=== PATIENT | female | born 1980 | race Asian ===

== ENCOUNTER 2019-07-11 10:02 | Outpatient (CLI) | payer OTHER ==
--- NOTE | 2019-07-11 11:27 | Ultrasound Report ---
Reason: RT THUMB BURSAL CYST Procedure Date: 07/11/2019 Accession Number: [id number] / [id number] Procedure: US - Ext Limited Non Vascular CPT Code: Final Report FULL RESULT: EXAM: RIGHT FINGER ULTRASOUND, THUMB. EXAM DATE: 07/11/2019 10:16 AM. CLINICAL HISTORY: RT THUMB BURSAL CYST. Discolored nail with tenderness. COMPARISON: None. TECHNIQUE: Real-time scanning was performed with static images obtained. FINDINGS: In the nailbed region of the right thumb is a 0.4 cm hyperechoic lesion, sonographic appearance suggestive of foreign body surrounded by approximately 3 mm thick fluid collection. There is no bursal cyst, the finding is not at the joint or in communication with the joint space. IMPRESSION: Suspect foreign body with surrounding fluid collection at the base of the nail bed. No bursal cyst. RADIA
== END 2019-07-11 10:03 | disposition home or self-care (01) ==
LOC: DI 10:02
DX: M71.341 Other bursal cyst, right hand (principal); L60.8 Other nail disorders
CPT/HCPCS: 76882

== ENCOUNTER 2021-08-12 13:40 | Emergency (ER) | payer OTHER ==
[2021-08-12 13:48] VITALS: BP 137/79
[2021-08-12 14:49] LABS: BASOPHILS % (AUTO) 0.3 %; EOSINOPHILS # (AUTO) 0.1 10^3/uL (0.0-0.7); EOSINOPHILS % (AUTO) 1.2 %; HCT - HEMATOCRIT 36.8 % (37.0-47.0); HGB - HEMOGLOBIN 12.5 g/dL (12.0-16.0); LYMPHOCYTES # (AUTO) 1.7 10^3/uL (1.5-3.5); MEAN CORPUSCULAR HEMOGLOBIN 27.8 pg (27.0-31.0); MEAN CORPUSCULAR VOLUME 81.8 fL (81.0-99.0); MEAN PLATELET VOLUME 9.3 fL (7.9-10.8); MONOCYTES # (AUTO) 0.6 10^3/uL (0.0-1.0); MONOCYTES % (AUTO) 7.6 %; NEUTROPHILS % (AUTO) 67.4 %; PLT - PLATELET COUNT 231 10^3/uL (130-450); RED CELL DISTRIBUTION WIDTH 13.9 % (12.0-15.0); WHITE BLOOD COUNT 7.4 x10^3/uL (4.8-10.8)
[2021-08-12 15:07] LABS: ALBUMIN 3.5 g/dL (3.2-5.5); BILIRUBIN,TOTAL 0.3 mg/dL (0.2-1.0); CALCIUM 8.8 mg/dL (8.5-10.3); CREATININE 0.5 mg/dL (0.4-1.0)
--- NOTE | 2021-08-12 15:59 | ED Physician Documentation ---
History of Present Illness - Stated complaint Stated Complaint: FEMALE - Chief complaint Chief Complaint: General - History obtained from History obtained from: Patient - History of Present Illness Timing: Today Pain level max: 0 Pain level now: 0 - Additonal information Additional information: 41 year old female with a IUFD on US 2 days ago at [facility], scheduled for a D&C tomorrow at [place]. Wants to confirm demise. Review of Systems Constitutional: denies: Fever, Chills GI: denies: Vomiting, Diarrhea Skin: denies: Rash Musculoskeletal: denies: Neck pain, Back pain Neurologic: denies: Headache PD PAST MEDICAL HISTORY - Present Medications Home Medications: Ambulatory Orders Medication Instructions Recorded Confirmed Pnv No.95/Ferrous Fum/Folic AC 1 each PO DAILY 08/12/21 08/12/21 [ [place]] - Allergies Allergies/Adverse Reactions: Allergies Allergy/AdvReac Type Severity Reaction Status Date / Time No Known Drug Allergies Allergy Verified 08/12/21 13:47 PD ED PE NORMAL - Vitals Vital signs reviewed: Yes - General General: Alert and oriented X 3, No acute distress - HEENT HEENT: Moist mucous membranes - Neck Neck: Supple, no meningeal sign - Cardiac Cardiac: RRR, Strong equal pulses - Respiratory Respiratory: No respiratory distress, Clear bilaterally - Abdomen Abdomen: Soft, Non tender, Non distended - Derm Derm: Warm and dry - Extremities Extremities: No edema - Neuro Neuro: Alert and oriented X 3 - Psych Psych: Normal mood, Normal affect Results - Vitals Vitals: Vital Signs - 24 hr 08/12/21 13:44 Temperature 36.2 C L Heart Rate 88 Respiratory 16 Rate Blood Pressure 137/79 H O2 Saturation 100 Oxygen O2 Source Room air - Labs Labs: Laboratory Tests 08/12/21 08/12/21 08/12/21 14:44 14:44 14:44 WBC 7.4 RBC 4.50 Hgb 12.5 Hct 36.8 L MCV 81.8 MCH 27.8 MCHC 34.0 RDW 13.9 Plt Count 231 MPV 9.3 Neut # (Auto) 5.0 Lymph # (Auto) 1.7 Geary # (Auto) 0.6 Eos # (Auto) 0.1 Baso # (Auto) 0.0 Absolute Nucleated RBC 0.00 Nucleated RBC % 0.0 Sodium 136 Potassium 4.0 Chloride 103 Carbon Dioxide 23 Anion Gap 10.0 BUN 10 Creatinine 0.5 Estimated GFR (MDRD) 137 Glucose 84 Calcium 8.8 Total Bilirubin 0.3 AST 12 ALT 15 Alkaline Phosphatase 40 L Total Protein 7.0 Albumin 3.5 Globulin 3.5 Albumin/Globulin Ratio 1.0 Lipase 40 HCG, Quant 32514.00 - Rads (name of study) OB US Radiology: Final report received, EMP read contemporaneously, See rad report PD MEDICAL DECISION MAKING - ED course Complexity details: reviewed results, re-evaluated patient, considered differential, d/w patient ED course: 41-year-old female with an intrauterine demise. Has a D&C scheduled tomorrow. No other emergency medical condition at this time. Patient counseled regarding signs and symptoms for which I believe and urgent re-evaluation would be necessary. Patient with good understanding of and agreement to plan and is comfortable going home at this time This document was made in part using voice recognition software. While efforts are made to proofread this document, sound alike and grammatical errors may occur. No pain or bleeding today 1. Single intrauterine gestation with absence of heart tone or movement consistent with intrauterine demise. This is also consistent with reported outside study finding. Departure - Departure Disposition: 01 Home, Self Care Clinical Impression: demise Condition: Good Instructions: ED Miscarriage Inevitable Follow-Up: your,doctor tomorrow [Other] Comments: your ultrasound today does confirm an intrauterine demise. Please follow up with OB as scheduled tomorrow. Discharge Date/Time: 08/12/21 16:08
--- NOTE | 2021-08-12 16:07 | Ultrasound Report ---
PROCEDURE: OB 14+ Weeks INDICATIONS: possible demise 14 weeks OUTSIDE/PRIOR DATING DATA: Last menstrual period (LMP): 04/30/2021. LMP-based estimated date of delivery (CRYSTAL): 02/04/2022. First dating scan (date and location): 07/03/2021. Estimated date of delivery (CRYSTAL) from first dating scan: 02/04/2022. The below data below was generated using the prior study generated CRYSTAL of 02/04/2022 TECHNIQUE: Real-time scanning was performed of the fetus, with image documentation and biometric measurements. COMPARISON: Outside study performed at clinician's office dated 08/10/2021. FINDINGS: General: A single living intrauterine gestation is present. Presentation: Breech Placenta: Placental position is posterior, without previa. Amniotic fluid index : not evaluated. heart rate: Not detected. Maternal cervical canal: 3.2 cm long and is closed, normal length is 2.5 cm or more. biometrics: Biparietal diameter: 2.66 cm, 14 weeks, 5 days Head circumference: 10.94 cm, 15 weeks, 2 days Abdominal circumference: 9.2 cm, 15 weeks, 3 days Femur length: 1.49 cm, 14 weeks, 3 days Estimated gestational age from initial scan: 14 weeks, 6 days. Composite gestational age from present scan: 15 weeks, 0 day. No movement is noted during the study. IMPRESSION: 1. Single intrauterine gestation with absence of heart tone or movement consistent with i ntrauterine demise. This is also consistent with reported outside study finding. Patient is scheduled for D&C at [facility] on 08/13/2021. Reviewed by: Jarertt Strauss MD on 08/12/2021 4:05 PM PST Approved by: Jarrett Strauss MD on 08/12/2021 4:05 PM PST Station ID: [id number]
== END 2021-08-12 16:08 | disposition home or self-care (01) ==
LOC: ED 13:40
DX: O02.1 Missed abortion (principal); Z3A.14 14 weeks gestation of pregnancy
CPT/HCPCS: 36415; 80053; 83690; 84702; 85025; 86900; 86901; 99283; 99284